=== PATIENT | male | born 1970 | race Caucasian/White ===

== ENCOUNTER → 2020-01-14 11:31 | Outpatient (BNVA) | payer BC, SELFPAY | PROVIDERS: Visit Provider Registered Nurse | DX: I10 Essential (primary) hypertension (principal) | CPT/HCPCS: 80053; 80061; 83721; 85025 ==

== ENCOUNTER 2025-01-15 12:46 | Inpatient (IN) | payer OTHER, SELFPAY ==
[2025-01-15] VITALS (18 sets, daily range): BP systolic 84–143; BP diastolic 60–95; PULSE 81–115; RESP 13–20; TEMP 36.2–36.9; O2SAT 90–97; BMI 34.4
--- NOTE | 2025-01-15 12:47 | XACV_ITS ---
Exam Room: 2 Ht: 178 cm Wt: 100 kg BSA: 2.25 m2 Gender: Male : 1970 Any Known Allergies: No known allergies Exam Priority: Routine Indication(s): - Inferior wall NM Procedure(s): Procedure Description: Diagnostic procedure Procedure Description: PCI procedure Procedure Description: Drug Eluting Coronary Stent Procedure Description: PTCA Procedure Description: Miscellaneous Procedure Description: ACT Procedure Description: Coronary Angiography Diagnostic Cath Status: Emergency Diagnostic Findings * INDICATION: Acute inferior wall ST elevation NM. * Left Main has no significant disease. * Left Anterior Descending has mild luminal irregularities. * Circumflex has no significant disease. * Proximal to mid Right Coronary Artery: total thrombotic occlusion. This is the culprit vessel for STEMI. * Coronary angiography shows right dominance. PCI Status: Emergency PCI Indication: Immediate PCI for STEMI Interventional Findings * Proximal Right Coronary Artery: 100% stenosis treated with a AB TREK 2.50X15 RX BALLOON, MALA Fenton AIDEE 4.0X38 CARMELLA, MALA MARTINEZ EUPHORA RX [id number] BALLOON, and MALA Fenton AIDEE 4.0X12 CARMELLA. * Procedure detail: We engaged RCA with JR 4 guide catheter. Heparin was administered to maintain anticoagulation. Runthrough guidewire was used to cross totally occluded segment. We predilated the stenosis with 2.5x15 mm semicompliant balloon. This was followed by placement of 4.0x38mm Resolute aidee CARMELLA. This was post dilated with 4.0x15mm NC balloon at high pressure. There was residual stenosis at proximal edge of stent and we placed another overlapping stent measuring 4.0x12mm Resolute aidee CARMELLA proximally. At this time final angiogram was performed that showed excellent stent expansion, MARIA 3 flow and no residual stenosis. Patient had transient bradycardia and hypotension. Was given atropine, neosynephrine and levophed. Guidewire and guide catheter were removed. Patient was transferred to ICU. Conclusions 1. Total thrombotic occlusion of proximal to mid RCA s/p successful revascularization with 2 stent. 2. Proximal Right Coronary Artery was treated with a Balloon, Drug Eluting Stent, Balloon, and Drug Eluting Stent. Recommendations * Dual antiplatelet therapy with aspirin and plavix. * High intensity statin therapy. * Outpatient cardiology follow up in 2 weeks. Interventional RX Recommendation: PCI w/o planned CABG Diagnostic RX Recommendation: PCI w/o planned CABG Anticoagulation: Heparin Pressures Phase:Rest AO : 130 / 85 ( 105 ) @ 2:04:00 PM 66 / 46 ( 56 ) @ 2:07:00 PM 56 / 43 ( 48 ) @ 2:08:00 PM 29 / 19 ( 19 ) @ 2:14:00 PM 96 / 74 ( 85 ) @ 2:28:00 PM Clinical Evaluation EBL: 5mL-10mL Procedural Details Pre-Procedure Time Out. Identified patient by full name and date of as verbalized by the patient/guarantor. Does the consent match the physician's order: N/A Emergent; Informed Consent not obtained due to time critical life threat. Accurate & Complete Informed Consent: N/A Emergent; Informed Consent not obtained due to time critical life threat. Inpatient/Outpatient History & Physical on Chart: N/A Emergent; Informed Consent not obtained due to time critical life threat. If H&P is completed, is and addenduem needed: N/A Emergent; Informed Consent not obtained due to time critical life threat; If yes, is the addendum complete: N/A Emergent; Informed Consent not obtained due to time critical life threat. Visualize and Verify Site with Patient/Guarantor: N/A. Relevant Radiology Images available: N/A Emergent; Informed Consent not obtained due to time critical life threat. Pre-op teaching completed and patient verbalized understanding. The risks, benefits, and alternatives of sedation and/or procedure were discussed by physician. The patient agrees to continue. Procedure started. [facility] Clinical Fraility Score: 3: Managing Well. 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 Chest Pain Symptom Assessment: Typical Angina Symptoms. Cardiovascular Instability: Yes, if yes, Persistant Ischemic Symptoms. Correct patient, site and procedure confirmed by cath team. PERRLA. 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 Lungs clear x 5 lobes. IV Site on Arrival: 20 gauge in the right anticubital. IV Site on Arrival: 18 gauge in the left anticubital. IV Fluids: 0.9% NaCl at KVO. 0 mL infused prior to collaborative physician. Pre Procedural Pulses: right radial was 3+. Oxygen started at 2liters/min via nasal canula. right groin was prepped with chloroprep then draped in the usual sterile fashion. right radial was prepped with chloroprep then draped in the usual sterile fashion. Physician notified. Baseline sample Acquired. HR: 81 BPM. Patient's family unavailable. Equipment: 6F - Radial. Cardiac Cath Pack. ACIST Manifold Kit Model BT 2000. Heparinized Saline (2 units/mL), 1000 mL bag. Physician scrubbed in. Immediate Pre-Procedure Time Out. Correct Patient: N/A Emergent; Informed Consent not obtained due to time critical life threat; Correct Procedure: N/A Emergent; Informed Consent not obtained due to time critical life threat; Correct Site: N/A Emergent; Informed Consent not obtained due to time critical life threat; Correct Patient Position: N/A Emergent; Informed Consent not obtained due to time critical life threat; Correct Supplies: N/A Emergent; Informed Consent not obtained due to time critical life threat; Dried Flammable Prep: N/A Emergent; Informed Consent not obtained due to time critical life threat; Blood Products Available: N/A Emergent; Informed Consent not obtained due to time critical life threat;. Lidocaine 1% infiltrated to the right radial. Arterial access obtained. 6 saudi arabian JR 4 guide catheter was inserted over the exchagne J wire. Cineography of the RCA performed. Runthrough guidewire was advanced through the guide catheter to lesion in the prox RCA. AP pads were in place on arrival to the collaborative physician. Inflation number : 1 A AB TREK 2.50X15 RX BALLOON was prepped and advanced across the Prox RCA , then inflated to 8 JOANA for 0:08 seconds. Inflation number: 2 The AB TREK 2.50X15 RX BALLOON was reinflated across the Prox RCA, to 8 JOANA for 0:09 seconds. Balloon out. Aidee 4.0 x 38 stent in, unable to cross, removed intact. Guideliner in OTW. Inflation Number : 3 A MDT R AIDEE 4.0X38 CARMELLA -Lot Number# [id number] was prepped and advanced across the Prox RCA. The stent was deployed at 12 JOANA for 0:17 seconds. Exp. . Stent balloon out over wire. Results checked. Guideliner out OTW. Inflation number : 4 A MDT JUAN EUPHORA RX [id number] BALLOON was prepped and advanced across the Prox RCA , then inflated to 18 JOANA for 0:13 seconds. Current Diagnosis : STEMI. PCI Indication : Immediate PCI for STEMI. Balloon out. Inflation Number : 5 A MDT R AIDEE 4.0X12 CARMELLA -Lot Number# [id number] was prepped and advanced across the Prox RCA. The stent was deployed at 12 JOANA for 0:15 seconds. Exp. . Inflation number: 6 The stent balloon was then re-inflated across the Prox RCA to 12 JOANA for 0:05 seconds. Stent balloon out over wire. Results checked. Wire out. ACT drawn. Results 388 seconds. Therapeutic limits - pre-heparin administration 90-150 seconds and monitoring heparin during a vascular procedure >250 seconds. Guide catheter out over the exchange J wire. A 5 saudi arabian JL 3.5 catheter in over the exchange J wire. Multiple views taken of left coronary artery. ACT drawn. Results 249 seconds. Therapeutic limits - pre-heparin administration 90-150 seconds and monitoring heparin during a vascular procedure >250 seconds. Catheter removed over the exchange J wire. Dr. Burns scrubbed out. A TR Band was successful obtaining hemostatsis at the Right Radial artery insertion site. Post Procedure: Pulses reassessed and unchanged. PERRLA. 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 No VTE prophylaxis required. Medication's Wasted: Lidocaine 1% = 18 mL. Medication's Wasted: Nitro = 49.8 mg. Medication's Wasted: Heparin = 2000 untis. Medication's Wasted: Other = Fentanyl 50 mcg. Total IV fluids: 800 mL. Post-op diagnosis: Total occlusion of the prox RCA s/p two CARMELLA. Complications: none. Estimated blood loss: 5mL-10mL. Responsiveness - Normal response to verbal stimuli; alert and oriented, PERRLA. Airway - Unaffected, no intervention required; spontaneous ventilation. Circulation: W/N/L, pulses unchanged. Nausea/Vomiting: No. Procedure completed. Patient transferred by bed to ICU. Vital chart was stopped. Access Site Site: Right Radial artery Sheath Size: 6 Fr Hemostasis Method: TR Band Hemostasis Success: Successful Procedure Medications Start: 12:59 PM Stop: 12:59 PM Medication: Plavix Amount: 600 mg Route: P.O. Start: 12:59 PM Stop: 12:59 PM Medication: Versed Amount: 1 mg Route: I.V. Start: 12:59 PM Stop: 12:59 PM Medication: Fentanyl Amount: 50 mcg Route: I.V. Start: 1:00 PM Stop: 1:00 PM Medication: Heparin Amount: 4000 units Route: I.V. Start: 1:02 PM Stop: 1:02 PM Medication: Versed Amount: 1 mg Route: I.V. Start: 1:04 PM Stop: 1:04 PM Medication: Heparin Amount: 5000 units Route: I.V. Start: 1:08 PM Stop: 1:08 PM Medication: Atropine Amount: 0.5 mg Route: I.V. Start: 1:09 PM Stop: 1:09 PM Medication: Zofran (ondansetron) Amount: 4 mg Route: I.V. Start: 1:10 PM Stop: 1:10 PM Medication: 0.9% Saline Amount: 250 ml Route: I.V. bolus Start: 1:11 PM Stop: 1:11 PM Medication: Heparin Amount: 1000 units Route: I.V. Start: 1:12 PM Stop: 1:12 PM Medication: Neosynephrine Amount: 100 mcg Route: I.V. Start: 1:14 PM Stop: 1:14 PM Medication: Atropine Amount: 0.5 mg Route: I.V. Start: 1:17 PM Stop: 1:17 PM Medication: Levophed (norepinephrine) Amount: 8 mcg/min Route: I.V. drip Start: 1:21 PM Stop: 1:21 PM Medication: Neosynephrine Amount: 100 mcg Route: I.V. Start: 1:24 PM Stop: 1:24 PM Medication: Aggrastat 12.5 mg/250 mL Amount: 50 ml Route: I.V. bolus Start: 1:24 PM Stop: 1:24 PM Medication: Aggrastat 12.5 mg/250 mL Amount: 18 ml/hr Route: I.V. drip Start: 1:02 PM Stop: 1:02 PM Medication: Nitrogylcerin Amount: 200 mcg Route: I.A. I, the attending physician, have reviewed and verified all procedure medications. Yes, all medications given per verbal order Report Signatures Finalized by Ignacio Burns MD on 01/26/2025 07:08 PM
--- NOTE | 2025-01-15 12:52 | ED_ITS ---
HPI - Chest Pain General: Chief Complaint: Chest Pain Stated Complaint: Stemi Time Seen by Provider: 01/15/25 12:46 History of Present Illness: 54-year-old male who presents emergency room with chest pain began around 7 AM this morning while he was at rest did not had any episode prior. Chest pain waxed and waned for a time and then persisted EMS was called on arrival gave aspirin and 3 sublingual nitro 500 mL normal saline and route. Patient had some improvement of his chest comfort show EKG showed obvious ST elevation NM in the inferior leads. STEMI alert called prior to patient's arrival. Associated symptoms: Deny abdominal pain, dyspnea or fever(s) Related Data Previous Rx's ?Medication ?Instructions ?Recorded amlodipine 10 mg tablet 10 mg PO DAILY #90 tabs 01/29 05/19 hydrochlorothiazide 50 mg tablet 50 mg PO DAILY #90 ta bs 02/23/21 Allergies Allergy/AdvReac Type Severity Reaction Status Date / Time No Known Allergies Allergy Verified 02/23/21 09:07 Review of Systems Const: Denies: fever(s) or chills Card: Denies: chest pain Resp: Denies: dyspnea GI: Denies: abdominal pain : Denies: dysuria, urinary frequency or urinary urgency Musc: Denies: neck pain or back pain Skin/Breast: Denies: rash PFSH ED PFSH: Medical History Erectile dysfunction Essential hypertension Social History Smoking and tobacco/nicotine status: never used tobacco/nicotine Alcohol intake: never Substance/Drug Use: never Adopted: No Caregiver/support person: No Lives independently: No Household members: spouse and children Current occupational status: employed Sexually active: Yes Do you think of yourself as: Straight/Heterosexual Current gender identity: Male Physical Exam Const: COMMON NORMALS: no acute distress GENERAL APPEARANCE: cooperative and comfortable ORIENTATION/CONSCIOUSNESS: Yes awake, Yes oriented to person, Yes oriented to place and Yes oriented to time HENMT: COMMON NORMALS: normocephalic, atraumatic and hearing grossly normal bilaterally HEAD & SCALP: normocephalic and atraumatic Resp: COMMON NORMALS: normal respiratory effort, No retractions, No use of accessory muscles and clear to auscultation bilaterally AUSCULTATION: clear to auscultation bilaterally Cardio: COMMON NORMALS: regular rate, regular rhythm and No murmurs present (Cardio) RATE: regular rate RHYTHM: regular rhythm GI: COMMON NORMALS: Soft to palpation and No hepatosplenomegaly present AUSCULTATION: Yes normoactive bowel sounds PALPATION: Yes Soft to palpation, No Tenderness to palpation present (GI), No Guarding due to palpation present (GI) and Yes No hepatosplenomegaly present Extremity: COMMON NORMALS: normal to inspection, capillary refill normal, no clubbing, cyanosis or edema, no calf tenderness and no pedal edema Neuro: SENSORIUM/ORIENTATION: Yes oriented to person, Yes oriented to place and Yes oriented to time Skin: COMMON NORMALS: no rashes or lesions noted GENERAL SKIN EXAM: no rashes or lesions noted Course Vital Signs: Vital signs: Vital Signs Temperature 97.2 F L 01/15/25 12:46 Pulse Rate 88 01/15/25 12:46 Respiratory Rate 18 01/15/25 12:46 Blood Pressure 135/84 01/15/25 12:46 Pulse Oximetry 97 01/15/25 12:46 Oxygen Delivery Me thod Room Air 01/15/25 12:46 MDM - Chest Pain Medical Decision Making NSTEMI. Dr. Burns on-call in the department is seen the patient patient will go emergently to the Consulting Psychiatrist Medical Records I reviewed the patient's medical records. Lab Data I reviewed the patient's lab results. No radiology studies performed this visit Discharge Plan Discharge Patient Disposition: Admitted As Inpatient Clinical Impression: ST elevation myocardial infarction (STEMI) Condition: Stable Coding Level of Care Code ED Range Rider for Calli Antony
--- NOTE | 2025-01-15 12:54 | ECG_ITS ---
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 Measurements Intervals [place] Rate: 86 P: 51 [place]: 178 QRS: 70 QRSD: 114 T: 105 QT: 397 QTc: 476 Interpretive Statements SINUS RHYTHM WITH OCCASIONAL VENTRICULAR PREMATURE COMPLEXES INFERIOR MYOCARDIAL INFARCTION , POSSIBLY ACUTE [40+ ms Q WAVE AND/OR ST/T ABNORMALITY IN II/aVF] ACUTE [place] No previous ECG available for comparison Electronically Signed On 01-15-2025 22:01:56 CDT by Gladys Ivey M.D. [id number]
--- NOTE | 2025-01-15 12:54 | XR_ITS ---
WS: [id number] Portable AP upright chest, 01/15/2025 Clinical Data: Chest pain Comparison: None. Findings: No nodules, masses or effusions are seen. The heart is enlarged. The pulmonary vascularity is not increased. No pneumonia or pneumothorax is seen. The aortic arch shows mild calcification and tortuosity. There is a resuscitation paddle over the right chest and there are monitor leads and bala rding devices on the chest wall. XR/XR chest 1V portable [id number] Impression: Atherosclerosis and cardiomegaly.
[2025-01-15 13:15] LABS: Basophils # 0.1 10^3/uL (0.0-0.1); Basophils % 0.4 %; Eosinophils # 0.1 10^3/uL (0.0-0.8); Eosinophils % 0.3 %; Hematocrit 44.1 % (37-53); Lymphocytes # 2.6 10^3/uL (0.8-4.8); Lymphocytes % 15.9 %; Mean Corpuscular Hemoglobin 28.6 pg (27-33); Mean Corpuscular Volume 84.2 fl (82-101); Mean Platelet Volume 11.7 fL (7.4-10.4); Monocytes # 0.7 10^3/uL (0.2-0.9); Monocytes % 4.1 %; Neutrophils # 12.96 10^3/uL (1.8-7.7); Neutrophils % 78.8 %; Nucleated Red Blood Cells % 0 %; Platelet Count 309 10^3/cmm (157-399); Red Blood Count 5.24 10^6/uL (3.85-5.65); Red Cell Distribution Width 14.1 % (12.1-15.1); White Blood Count 16.45 10^3/uL (3.29-11.43)
[2025-01-15 13:34] LABS: Troponin(5th) Baseline 11 ng/L (0-15)
--- NOTE | 2025-01-15 13:34 | P.HP_ITS ---
Providers/Chief Complaint 2 Admitting Physician: Ignacio Burns MD/ Interventional Cardiology Chief Complaint: STEMI History of Present Illness David Kumar is a 54 year old male with past medical history of hypertension who presented to hospital with few hours of chest discomfort. It was severe initially. He says after receiving nitroglycerin the pain has improved but still ongoing. EKG is consistent with acute inferior wall ST elevation AL. Review of Systems 2 Const: Denies: fever(s) or chills Card: Reports: chest pain Resp: Denies: dyspnea GI: Denies: abdominal pain : Denies: dysuria, urinary frequency or urinary urgency Musc: Denies: neck pain or back pain Skin/Breast: Denies: rash Medications/Allergies Home Medications ?Medication ?Instructions ?Recorded ?Confirmed ?Last Taken ?Type amlodipine 10 mg tablet 10 mg PO DAILY #90 tabs 01/2901/15/25 Unknown Rx hydrochlorothiazide 50 mg tablet 50 mg PO DAILY #90 ta bs 02/23/21 01/15/25 Unknown Rx Allergies Allergy/AdvReac Type Severity Reaction Status Date / Time No Known Allergies Allergy Verified 02/23/21 09:07 PFSH Acute 2 PFSH: Medical History Erectile dysfunction Essential hypertension Social History Smoking and tobacco/nicotine status: never used tobacco/nicotine Alcohol intake: never Substance/Drug Use: never Adopted: No Caregiver/support person: No Lives independently: No Household members: spouse and children Current occupational status: employed Sexually active: Yes Do you think of yourself as: Straight/Heterosexual Current gender identity: Male Vitals/I&O/Wt Last Vital Signs Temp 97.2 F L 01/15/25 12:46 Pulse 88 01/15/25 12:46 Resp 18 01/15/25 12:46 BP 135/84 01/15/25 12:46 Pulse Ox 97 01/15/25 12:46 O2 Del Method Room Air 01/15/25 12:46 Physical Exam 2 Narrative: GENERAL: Patient is alert, awake and oriented x3. HEART: Regular S1 and S2. No murmur, rub or gallop. LUNGS: Clear to auscultate bilaterally. CENTRAL NERVOUS SYSTEM: Grossly nonfocal. EXTREMITIES: Lower extremities with out edema bilaterally. Data 01/15/25 12:50 01/15/25 12:50 A&P Assessment and plan (1) ST elevation myocardial infarction (STEMI): (2) Essential hypertension: Plan Patient has presented with acute inferior wall ST elevation AL. Going emergently for cardiac catheterization. Loaded with aspirin and Plavix. We will obtain an echocardiogram postprocedure. Will be transferred to ICU PDMP PDMP Reviewed: Not Reviewed Attestations 2 Medical Necessity Statement*: Care expected to cross 2 midnights. Patient has presented with acute inferior wall ST elevation AL and going for emergent cardiac catheterization. Coding Level of Care Code Acute Code for [facility] Diagnoses ST elevation myocardial infarction (STEMI) I21.3 Essential hypertension I10
[2025-01-15 13:35] LABS: Alanine Aminotransferase 27 U/L (0-41); Albumin Level 3.8 g/dL (3.5-5.2); Alkaline Phosphatase 60 U/L (40-130); Anion Gap 21.6 (5-19); Aspartate Amino Transferase 25 U/L (0-40); Blood Urea Nitrogen 16 mg/dL (6-20); Calcium 8.6 mg/dL (8.5-10.5); Carbon Dioxide 22 mmol/L (22-29); Chloride 98 mmol/L (98-107); Globulin 3.7 g/dL (1.3-4.6); Glomerular Filtration Rate 63.1 mL/min (90-130); Glucose 186 mg/dL (65-115); Osmolality Calculated 294 mOsm/kg (285-295); Sodium 139 mmol/L (136-145); Total Bilirubin 0.4 mg/dL (0.15-1.2); Total Protein 7.5 g/dL (6.6-8.7)
--- NOTE | 2025-01-15 13:42 | PM.PROC ---
Procedure Note: Date of procedure: 01/15/25 Pre-procedure diagnosis: STEMI Post-procedure diagnosis: other (Total thrombotic occlusion of proximal to mid LAD s/p PCI with 2 stents) Procedure: Left main artery is patent. LAD has diffuse mild to moderate luminal irregularities. Left circumflex artery is patent. RCA has total thrombotic occlusion from proximal to mid section. Status post successful revascularization with 2 stents. Patient had transient bradycardia and hypotension. Was given atropine, neosynephrine and levophed. Transfer to ICU. Aggrastat for 6 hours Aspirin and plavix Statin therapy Coding Level of Care Code Acute Code for [facility]
[2025-01-15 13:45] LABS: Potassium 2.6 mmol/L (3.5-5.1)
--- NOTE | 2025-01-15 13:47 | USCV_ITS ---
David Kumar Age: 54 Gender: M : 1970 Exam Date: 01/15/2025 14:27 Ordering Phys: Ignacio Burns M.D ([email or web address]) Technologist: Exam Location: [facility] [place] Indication: nstimi BP: 109 / 69 HR: 98 Rhythm: Sinus Technical Quality: Adequate MEASUREMENTS (Male / Female) Normal Values 2D ECHO LV Diastolic Diameter PLAX 4.8 cm 4.2 - 5.9 / 3.9 - 5.3 cm IVS Diastolic Thickness 1.4 cm 0.6 - 1.0 / 0.6 - 0.9 cm IVS Systolic Thickness 2.1 cm LVPW Diastolic Thickness 1.3 cm 0.6 - 1.0 / 0.6 - 0.9 cm LVPW Systolic Thickness 1.6 cm LVOT Diameter 2.0 cm LV Ejection Fraction 2D Teich 66.4 % LV Ejection Fraction MOD 4C 67.3 % LV Ejection Fraction MOD 2C 59.8 % LV Ejection Fraction 2C AL 63.6 % LA Diameter 2.9 cm RA Systolic Volume 4C AL 51.8 ml RA Systolic Volume 4C MOD 50.2 ml Aorta at Sinotubular Diameter 3.1 cm M-MODE LA Ao Ratio MM 1.2 AV Cusp Separation MM 1.8 cm DOPPLER AV Peak Velocity 154.0 cm/s LVOT Peak Velocity 85.0 cm/s AV Area Cont Eq vti 2.8 cm squared AV Area Cont Eq pk 1.8 cm squared MV Peak Velocity 116.0 cm/s MV Area PHT 3.6 cm squared Mitral E to A Ratio 3.8 TV Peak Velocity 100.5 cm/s TR Peak Velocity 124.0 cm/s TR Peak Gradient 6.2 mmHg TV Peak E Velocity 82.0 cm/s PV Peak Velocity 98.0 cm/s FINDINGS Left Ventricle Normal left ventricular size, systolic function and wall thickness, with no regional wall motion abnormalities. Left ventricular ejection fraction is estimated at 60 %. Grade I/IV diastolic dysfunction (abnormal relaxation filling pattern), normal to mildly elevated filling pressures. Right Ventricle The right ventricle is normal in size and function. Right Atrium The right atrium is normal in size. Left Atrium The left atrium is normal in size. Mitral Valve Structurally normal mitral valve without significant stenosis or prolapse. There is no mitral regurgitation. Aortic Valve Moderate aortic valve calcification. No aortic valve stenosis. Trace aortic valve regurgitation. Tricuspid Valve Structurally normal tricuspid valve without significant stenosis or regurgitation. Pulmonary artery systolic pressure is normal. Pulmonic Valve Structurally normal pulmonic valve without significant stenosis. There is no pulmonic regurgitation. Pericardium Normal pericardium without effusion. Aorta Normal ascending aorta dimension. IVC The inferior vena cava appears normal. CONCLUSIONS Normal left ventricular size, systolic function and wall thickness, with no regional wall motion abnormalities. Left ventricular ejection fraction is estimated at 60 %. Grade I/IV diastolic dysfunction (abnormal relaxation filling pattern), normal to mildly elevated filling pressures. There is no pericardial effusion. No significant valve abnormalities. Right atrial pressure is around 5 mm of mercury. Kourtney Canales MD (Electronically Signed) Final Date: 15 January 2025 17:25 S
--- NOTE | 2025-01-15 13:56 | PC.NURSE ---
Patient arrived to ICU at 1355. Dr Burns bedside gave verbal orders for 40meq of potassium IV. Order placed.
--- NOTE | 2025-01-15 13:57 | ECG_ITS ---
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 Measurements Intervals [place] Rate: 110 P: 0 [place]: 0 QRS: 57 QRSD: 116 T: -43 QT: 365 QTc: 495 Interpretive Statements ATRIAL FIBRILLATION WITH RAPID VENTRICULAR RESPONSE WITH ABERRANT CONDUCTION OR VENTRICULAR PREMATURE COMPLEXES INFERIOR MYOCARDIAL INFARCTION , PROBABLY RECENT [40+ ms Q WAVE AND/OR ST/T ABNORMALITY IN II/aVF] ACUTE [place] Compared to ECG 01/15/2025 12:45:04 Aberrant conduction of supraventricular beat(s) now present Sinus rhythm no longer present Myocardial infarct finding still present Electronically Signed On 01-15-2025 22:00:31 CDT by Gladys Ivey M.D. [email or web address] [id number]
--- NOTE | 2025-01-15 13:58 | PC.NURSE ---
Dr Burns gave verbal orders for EKG. Order placed.
--- NOTE | 2025-01-15 15:07 | ECG_ITS ---
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 Measurements Intervals [place] Rate: 96 P: 0 [place]: 0 QRS: 22 QRSD: 97 T: -26 QT: 397 QTc: 502 Interpretive Statements ATRIAL FIBRILLATION PROBABLE INFERIOR MYOCARDIAL INFARCTION , OF INDETERMINATE AGE [35 ms Q WAVE IN II/aVF] diffuse nonspecific T wave changes Compared to ECG 01/15/2025 13:57:32 Ventricular premature complex(es) no longer present Aberrant conduction of supraventricular beat(s) no longer present Myocardial infarct finding still present Electronically Signed On 01-15-2025 22:13:38 CDT by Gladys Ivey M.D. [email or web address]
[2025-01-15] MEDS: lidocaine 1% 5 ML in potassium chloride premix 100 ML 52.5 ML IV ×2 (15:26→17:08)
[2025-01-15] MEDS: sodium chloride 0.9% 1,000 ML 100 ML IV (15:31)
[2025-01-15 16:39] LABS: Troponin 5 2HR 517.2 ng/L (0-15); Troponin 5 2HR Delta 506.2 ABS# (0-10)
--- NOTE | 2025-01-15 16:44 | PC.NURSE ---
Dr. Burns gave order to continue aggrastat infusion from public works laborer until 193
[2025-01-15] MEDS: metoprolol tartrate 50 mg Tablet 25 MG PO (17:07)
--- NOTE | 2025-01-15 17:38 | ECG_ITS ---
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 Measurements Intervals [place] Rate: 100 P: 0 WV: 0 QRS: 18 QRSD: 94 T: -32 QT: 369 QTc: 478 Interpretive Statements ATRIAL FIBRILLATION WITH RAPID VENTRICULAR RESPONSE INFERIOR MYOCARDIAL INFARCTION , PROBABLY RECENT [40+ ms Q WAVE AND/OR ST/T ABNORMALITY IN II/aVF] ACUTE PR Compared to ECG 01/15/2025 15:07:21 No significant changes Electronically Signed On 01-15-2025 22:13:06 CDT by Gladys Ivey M.D. [email or web address]
[2025-01-15 20:00] LABS: Troponin 5 6HR 3678 ng/L (0-15); Troponin 5 6HR Delta 3667 ng/L (0-12)
[2025-01-15] MEDS: atorvastatin 40 mg Tablet 80 MG PO (20:56)
--- NOTE | 2025-01-15 21:37 | PC.NURSE ---
TR band removed at 2130. No hematoma, gauze and tegaderm dressing applied.
[2025-01-16] VITALS (27 sets, daily range): BP systolic 118–148; BP diastolic 78–92; PULSE 65–90; RESP 12–20; TEMP 36.7–36.8; O2SAT 90–97
[2025-01-16] MEDS: sodium chloride 0.9% 1,000 ML 100 ML IV ×2 (00:19→10:46)
[2025-01-16 04:16] LABS: Basophils # 0.1 10^3/uL (0.0-0.1); Basophils % 0.4 %; Eosinophils # 0.1 10^3/uL (0.0-0.8); Eosinophils % 0.4 %; Hematocrit 39.1 % (37-53); Lymphocytes # 3.2 10^3/uL (0.8-4.8); Lymphocytes % 20.5 %; Mean Corpuscular HGB Conc 33.5 g/dL (30-55); Mean Corpuscular Hemoglobin 29.2 pg (27-33); Mean Corpuscular Volume 87.1 fl (82-101); Mean Platelet Volume 11.4 fL (7.4-10.4); Monocytes # 1.3 10^3/uL (0.2-0.9); Monocytes % 8.1 %; Neutrophils % 70.1 %; Nucleated Red Blood Cells % 0 %; Platelet Count 260 10^3/cmm (157-399); Red Blood Count 4.49 10^6/uL (3.85-5.65); Red Cell Distribution Width 14.6 % (12.1-15.1); White Blood Count 15.82 10^3/uL (3.29-11.43)
[2025-01-16 04:40] LABS: Anion Gap 12.9 (5-19); Blood Urea Nitrogen 17 mg/dL (6-20); Calcium 8.5 mg/dL (8.5-10.5); Carbon Dioxide 28 mmol/L (22-29); Chloride 101 mmol/L (98-107); Glomerular Filtration Rate 77.9 mL/min (90-130); Glucose 130 mg/dL (65-115); Osmolality Calculated 291 mOsm/kg (285-295); Sodium 139 mmol/L (136-145)
[2025-01-16 05:02] LABS: Potassium 2.9 mmol/L (3.5-5.1)
--- NOTE | 2025-01-16 05:22 | PC.NURSE ---
Critical: potassium 2.4. Dr. Dc notified. New order for 80 meq Krider IV.
--- NOTE | 2025-01-16 05:28 | PC.NURSE ---
Critical: potassium 2.9. Dr. Dc notified. New order for Krider 80 meq IV.
[2025-01-16] MEDS: lidocaine 1% 5 ML in potassium chloride premix 100 ML 25 ML IV ×2 (05:31→08:38)
[2025-01-16] MEDS: metoprolol tartrate 50 mg Tablet 25 MG PO (08:37)
[2025-01-16] MEDS: aspirin 81 mg EC Tablet PO (08:37)
[2025-01-16] MEDS: clopidogrel 75 mg Tablet PO (08:37)
--- NOTE | 2025-01-16 10:15 | P.PN_ITS ---
Subjective 2 Subjective: He has done well overnight, has not had any significant chest pain, no shortness of breath, no lower extremity edema. LVEF 60% by echocardiogram. Blood pressure fairly well-controlled running 120-140 systolic. His potassium was 2.9 this morning, IV potassium replacement ordered. No complications with right radial cath site. Vitals/I&O/Wt Last Vital Signs Temp 98.3 F 01/16/25 04:01 Pulse 90 01/16/25 08:30 Resp 15 01/16/25 08:30 BP 120/80 01/16/25 08:30 Pulse Ox 93 01/16/25 08:30 O2 Del Method Room Air 01/16/25 06:00 01/15/25 01/16/25 01/16/25 22:59 06:59 14:59 Intake Total 240 / 1930 1690 / 1930 327.917 / 327.917 Output Total 625 / 1900 1275 / 1900 Balance -385 / 30 415 / 30 327.917 / 327.917 Weight last 48 hrs Weight 230 lb 6.129 oz Weight 233 lb 11.04 oz Physical Exam 2 Const: COMMON NORMALS: no acute distress and patient oriented x3 GENERAL APPEARANCE: cooperative ORIENTATION/CONSCIOUSNESS: Yes awake, Yes oriented to person, Yes oriented to place and Yes oriented to time Chest: COMMONS NORMALS: normal inspection of the chest and normal palpation of entire chest wall CHEST: Yes Symmetrical chest wall rise Resp: COMMON NORMALS: normal respiratory effort, No retractions, No use of accessory muscles and clear to auscultation bilaterally AUSCULTATION: clear to auscultation bilaterally Cardio: COMMON NORMALS: regular rate, regular rhythm, S1 normal heart sound present, S2 normal heart sound present, No gallops present (Cardio), No clicks present (Cardio), No murmurs present (Cardio) and No rub (Cardio) RATE: r egular rate RHYTHM: regular rhythm HEART SOUNDS: S1 normal heart sound present and S2 normal heart sound present PERIPHERAL PULSES: radial pulses present positive right 2+ and femoral pulses present positive right 2+ Neuro: COMMON NORMALS: patient oriented x3 and moves all extremities S ENSORIUM/ORIENTATION: Yes oriented to person, Yes oriented to place and Yes oriented to time Skin: WOUNDS: Yes surgical site (no hematoma palpable) Details: no odor Data 01/16/25 03:54 01/16/25 03:54 A&P Assessment and plan (1) ST elevation myocardial infarction (STEMI): (2) Essential hypertension: Plan He is s/p stent to the RCA x 2. No chest pain or shortness of breath. Once the potassium replacement has been completed and a repeat BMP evidences normal potassium, we may discharge him home. PDMP PDMP Reviewed: Not Reviewed Attestations 2 Medical Necessity Statement*: possible discharge later today Coding Level of Care Code Acute Code for [facility] Diagnoses ST elevation myocardial infarction (STEMI) I21.3 Essential hypertension I10
--- NOTE | 2025-01-16 10:43 | PC.NURSE ---
1015 -- Assisted patient to side of bed, no dizzyness, shortness of breath, or chest pain. Walked around room, tolerated well. Up to chair at bedside. 1040 -- Dr. Vivar to bedside. Plan of care to check K 2 hours after IV K finished and notify of results.
--- NOTE | 2025-01-16 14:36 | P.DS_ITS ---
<Statement entered by Ignacio Burns M.D - 01/18/25 08:17> Patient was evaluated and cared for in conjunction with an advanced practice practitioner.? I personally examined the patient and reviewed the chart and all pertinent data including imaging, telemetry, and laboratory results.? I discussed the patient in detail with the advanced practice practitioner.? Please see? their note for complete discharge summary, testing results and agreed upon plan of care for the patient. Patient is stable to be discharged. Patient had brief episode of atrial fibrillation for few hours post intervention. As outpatient will recommend event monitor GENERAL: Patient is alert, awake and oriented x3. HEART: Regular S1 and S2 LUNGS: Clear to auscultate bilaterally. CENTRAL NERVOUS SYSTEM: Grossly nonfocal. EXTREMITIES: Lower extremities with out edema bilaterally. Discharge Providers Date of Admission: 01/15/25 13:54 Date of Discharge: January 16, 2025 Attending Provider at Admission: Ignacio Burns M.D Attending Provider at Discharge: Ignacio Burns M.D Diagnoses at Discharge Discharge Diagnosis (1) ST elevation myocardial infarction (STEMI): Status: Acute (2) Essential hypertension: Status: Acute Reason for Visit Reason for Visit: STEMI Brief History: David Kumar is a 54 year old male with past medical history of hypertension who presented to hospital with few hours of chest discomfort. It was severe initially. He says after receiving nitroglycerin the pain has improved but still ongoing. EKG is consistent with acute inferior wall ST elevation [place]. 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 He has had hypokalemia and received several infusions of IV potassium including 2 doses this morning. Recheck of potassium this afternoon-was 3.3, will give 40 mEq of potassium now and add a 10 mEq daily dose to his medication regimen. He should have a recheck of potassium in 5 days. No complications with right radial cath site. Emphasized the importance of cardiac rehab, he lives in [place] and is difficult for him to travel he would prefer to exercise at home. No chest pain today, blood pressure has been well-controlled. He will discharge home today with aspirin, Plavix, atorvastatin, metoprolol. 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 Physical Exam Const: COMMON NORMALS: no acute distress and patient oriented x3 GENERAL APPEARANCE: cooperative ORIENTATION/CONSCIOUSNESS: Yes awake, Yes oriented to person, Yes oriented to place and Yes oriented to time Chest: COMMONS NORMALS: normal inspection of the chest and normal palpation of entire chest wall CHEST: Yes Symmetrical chest wall rise Resp: COMMON NORMALS: normal respiratory effort, No retractions, No use of accessory muscles and clear to auscultation bilaterally AUSCULTATION: clear to auscultation bilaterally Cardio: COMMON NORMALS: regular rate, regular rhythm, S1 normal heart sound present, S2 normal heart sound present, No gallops present (Cardio), No clicks present (Cardio), No murmurs present (Cardio) and No rub (Cardio) RATE: regular rate RHYTHM: regular rhythm HEART SOUNDS: S1 normal heart sound present and S2 normal heart sound present PERIPHERAL PULSES: radial pulses present positive right 2+ and femoral pulses present positive right 2+ Neuro: COMMON NORMALS: patient oriented x3 and moves all extremities SENSORIUM/ORIENTATION: Yes oriented to person, Yes oriented to place and Yes oriented to time Skin: WOUNDS: Yes surgical site (no hematoma palpable) Details: no odor Discharge Data Studies Completed and Pending Completed Studies During Hospitalization Category Date Time Status XR chest 1V portable [id number] Stat Exams 01/15/25 12:54 Completed CV. 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 Laboratory Results WBC 15.82 10^3/uL (3.29-11.43) H 01/16/25 03:54 RBC 4.49 10^6/uL (3.85-5.65) 01/16/25 03:54 Hgb 13.10 g/dL (11.27-16.99) 01/16/25 03:54 Hct 39.1 % (37-53) 01/16/25 03:54 MCV 87.1 fl (82-101) 01/16/25 03:54 MCH 29.2 pg (27-33) 01/16/25 03:54 MCHC 33.5 g/dL (30-55) 01/16/25 03:54 RDW 14.6 % (12.1-15.1) 01/16/25 03:54 Plt Count 260 10^3/cmm (157-399) 01/16/25 03:54 MPV 11.4 fL (7.4-10.4) H 01/16/25 03:54 Neut % (Auto) 70.1 % 01/16/25 03:54 Lymph % (Auto) 20.5 % 01/16/25 03:54 [place] % (Auto) 8.1 % 01/16/25 03:54 Eos % (Auto) 0.4 % 01/16/25 03:54 Baso % (Auto) 0.4 % 01/16/25 03:54 Neut # (Auto) 11.10 10^3/uL (1.8-7.7) H 01/16/25 03:54 Lymph # (Auto) 3.2 10^3/uL (0.8-4.8) 01/16/25 03:54 [place] # (Auto) 1.3 10^3/uL (0.2-0.9) H 01/16/25 03:54 Eos # (Auto) 0.1 10^3/uL (0.0-0.8) 01/16/25 03:54 Baso # (Auto) 0.1 10^3/uL (0.0-0.1) 01/16/25 03:54 Nucleated RBC % (auto) 0 % 01/16/25 03:54 Nucleated RBCs # 0.0 /100WBC 01/16/25 03:54 Sodium 139 mmol/L (136-145) 01/16/25 03:54 Potassium 2.9 mmol/L (3.5-5.1) L 01/16/25 03:54 Chloride 101 mmol/L (98-107) 01/16/25 03:54 Carbon Dioxide 28 mmol/L (22-29) 01/16/25 03:54 Anion Gap 12.9 (5-19) 01/16/25 03:54 BUN 17 mg/dL (6-20) 01/16/25 03:54 Creatinine 1.0 mg/dL (0.7-1.2) 01/16/25 03:54 GFR Calculation 77.9 mL/min (90-130) L 01/16/25 03:54 Glucose 130 mg/dL (65-115) H 01/16/25 03:54 Calculated Osmolality 291 mOsm/kg (285-295) 01/16/25 03:54 Calcium 8.5 mg/dL (8.5-10.5) 01/16/25 03:54 Total Bilirubin 0.4 mg/dL (0.15-1.2) 01/15/25 12:50 AST 25 U/L (0-40) 01/15/25 12:50 ALT 27 U/L (0-41) 01/15/25 12:50 Alkaline Phosphatase 60 U/L (40-130) 01/15/25 12:50 Troponin T Baseline 11 ng/L (0-15) 01/15/25 12:50 Troponin T 120 Minute 517.2 ng/L (0-15) H 01/15/25 15:31 Delta Troponin T 506.2 ABS# (0-10) H* 01/15/25 15:31 Troponin T Hi Sens 6Hr 3678 ng/L (0-15) H 01/15/25 18:37 Troponin T Hi Sens 6Hr Delta 3667 ng/L (0-12) H* 01/15/25 18:37 Total Protein 7.5 g/dL (6.6-8.7) 01/15/25 12:50 Albumin 3.8 g/dL (3.5-5.2) 01/15/25 12:50 Globulin 3.7 g/dL (1.3-4.6) 01/15/25 12:50 Vitals Last Vital Signs Temp 98.2 F 01/16/25 12:07 Pulse 70 01/16/25 13:00 Resp 19 H 01/16/25 13:00 BP 128/85 01/16/25 13:00 Pulse Ox 92 01/16/25 13:00 O2 Del Method Room Air 01/16/25 12:07 Discharge Plan Discharge Patient Disposition: Home Condition: Stable Prescriptions: New atorvastatin 40 mg Tablet 80 mg PO BEDTIME Qty: 90 0RF metoprolol tartrate 50 mg Tablet 25 mg PO BID Qty: 180 0RF nitroglycerin 0.4 mg Tablet, Sublingual 0.4 mg sublingual Q5M PRN (Reason: Chest Pain) Qty: 30 0RF Continued amlodipine 10 mg tablet 10 mg PO DAILY Qty: 90 1RF No Action clopidogrel 75 mg tablet 75 mg PO DAILY Qty: 90 3RF aspirin 81 mg tablet,delayed release (DR/EC) 81 mg PO DAILY Qty: 90 3RF potassium chloride [Klor-Con 10] 10 mEq tablet extended release 10 meq PO DAILY Qty: 30 1RF Discharge Orders: Discharge Order (Routine); Ordered 01/16/25 Ordered By: Jacqueline Jenkins Referrals: [facility] [Other] (you have a scheduled appointment [facility] Monday at 1:00 pm ) Jacqueline Jenkins FNP [Nurse Practitioner] - 02/04/25 8:30 am (JACQUELINE Jenkins APN Nurse for HEART cARE sERVICES fOR THIS APPOINTMENT .) Discharge Diet: Advance as tolerated Discharge Activity: Increase activity as tolerated Patient Instructions: Metoprolol (By mouth) (Lopressor, Toprol XL), Nitroglycerin, Rapid Release (By mouth) (NitroMist, Nitrolingual,..., Atorvastatin (By mouth) (Lipitor, Atorvaliq), Heart Attack (DC), Coronary Angioplasty (DC), Heart Healthy Diet (DC), Coronary Intravascular Stent Placement (DC), Opioid Safety, Post Angiogram Home Care Instructions, Post Heart Attack Stoplight Activity Restrictions/Additional Instructions: No lifting over 5 pounds with right arm for the next 4 days. Need to do BMP as an outpatient in 5 days. This can be done with primary care provider or at an [facility] lab, whichever you prefer. Discharge Attestations Time Spent in Discharge Care*: less than 30 min Quality Metrics Clinical Quality Measures [ Acute Myocardial Infaction { Clinical Trial Participant: No; Contraindication to aspirin: None; Aspirin prescribed; Contraindication to statin: None; Statin prescribed; Contraindication to PCI: None; PCI performed;}] Coding Level of Care Code Acute Code for [facility] Diagnoses ST elevation myocardial infarction (STEMI) I21.3 Essential hypertension I10
[2025-01-16 15:49] LABS: Blood Urea Nitrogen 20 mg/dL (6-20); Calcium 8.3 mg/dL (8.5-10.5); Carbon Dioxide 25 mmol/L (22-29); Chloride 106 mmol/L (98-107); Glomerular Filtration Rate 63.1 mL/min (90-130); Glucose 134 mg/dL (65-115); Osmolality Calculated 299 mOsm/kg (285-295); Sodium 142 mmol/L (136-145)
[2025-01-16 16:00] LABS: Anion Gap 14.3 (5-19); Potassium 3.3 mmol/L (3.5-5.1)
[2025-01-16] MEDS: potassium chloride ER 20 mEq Tablet 40 MEQ PO (17:21)
--- NOTE | 2025-01-16 17:24 | PC.NURSE ---
All D/C orders educated to patient, [facility] pharmacy contacted and confirmed all meds on dc paperwork have been sent and are ready. patient out of facility at this time transferred home by
== END 2025-01-16 17:10 | disposition home or self-care (01) | DRG 322 ==
LOC: ER 12:51 → CCL 12:52 → ICU 13:54
PROVIDERS: Nurse Practitioner Family; Admitting Provider Internal Medicine; Emergency Provider Family Medicine; Visit Provider Internal Medicine
PROC: 027035Z Dilation of Coronary Artery, One Artery with Two Drug-eluting Intraluminal Devices, Percutaneous Approach (ICD-10-PCS; principal; 2025-01-15 13:00)
PROC: 027035Z Dilation of Coronary Artery, One Artery with Two Drug-eluting Intraluminal Devices, Percutaneous Approach (ICD-10-PCS; 2025-01-15 13:00)
DX: I21.11 ST elevation (STEMI) myocardial infarction involving right coronary artery (principal); I48.91 Unspecified atrial fibrillation; I10 Essential (primary) hypertension; E87.6 Hypokalemia; Z79.02 Long term (current) use of antithrombotics/antiplatelets; Z79.82 Long term (current) use of aspirin; N52.9 Male erectile dysfunction, unspecified; R00.1 Bradycardia, unspecified; I95.9 Hypotension, unspecified
CPT/HCPCS: 36415; 71045; 80048; 80053; 84484; 85025; 85347; 93005; 93306; 93454; 96365; 96374; 96375; 99152; 99153; 99285; C1725; C1769; C1874; C1887; C1894; C9600; J0461; J1644; J2250; J2371; J2405; J3010; J3480; J3490; J7030; J9999; Q9967

== ENCOUNTER → 2025-10-06 15:45 | Outpatient (BNVA) | payer OTHER, SELFPAY | PROVIDERS: Visit Provider Internal Medicine | DX: I10 Essential (primary) hypertension (principal); R53.83 Other fatigue; N52.9 Male erectile dysfunction, unspecified; I25.10 Atherosclerotic heart disease of native coronary artery without angina pectoris; E78.5 Hyperlipidemia, unspecified | CPT/HCPCS: 36415; 80061; 83721; 84439; 84443 ==